=== PATIENT | male | born 1990 ===

== ENCOUNTER 2019-11-10 14:35 | Emergency (ER) | payer SELFPAY ==
[~2019-11-10] VITALS: Ht 165.1 cm; Wt 59.0 kg
[2019-11-10 14:45] VITALS: BP 137/76
== END 2019-11-10 16:07 | disposition home or self-care (01) ==
LOC: ER 14:35
DX: K52.9 Noninfective gastroenteritis and colitis, unspecified (principal)
CPT/HCPCS: 99283